=== PATIENT | male | born 1930 | race Caucasian/White ===

== ENCOUNTER 2020-10-10 11:40 | Observation (INO) | payer MEDICARE ==
--- NOTE | 2020-10-10 12:22 | Emergency Department Report ---
ED General Adult HPI - General Chief complaint: Syncope Stated complaint: SYNCOPIAL/EPISODE PUI?: No Time Seen by Provider: 10/10/20 11:58 Source: patient, family, EMS ( EMS documentation not available at time of chart dictation ), RN notes reviewed Mode of arrival: Stretcher Limitations: Altered Mental Status - History of Present Illness Initial comments: The patient was evaluated in the emergency department for symptoms described in the history of present illness. He/she was evaluated in the context of the global COVID-19 pandemic, which necessitated consideration that the patient might be at risk for infection with the virus that causes COVID-19. Institutional protocols and algorithms that pertain to the evaluation of patients at risk for COVID-19 are in a state of rapid change based on information released by regulatory bodies including the CDC and federal and state organizations. These policies and algorithms were followed during the patient's care in the emergency department. Please note that these policies, procedures and recommendations changed on a rapid basis. The patient is an 89-year-old gentleman. He is not known to myself previously. He was sent to the emergency room by [facility] cardiology. Apparently, patient was in the waiting room of the aforementioned cardiology practice, and a ppeared to have an episode of syncope/loss of consciousness/altered mental status. Patient himself is altered, poor historian, and hard of hearing. The patient indicates he is not having physical pain. The patient does not have any recollection of the event. Primary history obtained by speaking to Lea Nimisha Parada, patient's [id number]. At the moment, the patient is not physically accompanied by any biologic next of kin, and he himself is not able to describe qualitative nature of his symptoms, exacerbating factors, relieving factors, or aggravating factors. As per the patient's smmytu-[id number], patient has been confused since yesterday, less exact well time is not known, speaking nonsense, and slurred speech, and apparently, in the aforementioned cardiology office, had an episode of passing out. To the best of her recollection, no fever, no vomiting, no loss of taste or smell or urinary symptoms. In addition, the patient had initially suggested that he was given 10 medication/tablets at once, although he is not quite sure what medications, the aforementioned [id number] states that he got 5 medications and not 10, and she indicates he is where his typical prescription medications. -: days(s) Quality: other Consistency: other Improves with: other Worsens with: other Associated Symptoms: other - Related Data Allergies Allergy/AdvReac Type Severity Reaction Status Date / Time No Known Allergies Allergy Unverified 10/10/20 12:02 ED Review of Systems ROS: Stated complaint: SYNCOPIAL/EPISODE Other details as noted in HPI Comment: As per sis Constitutional: malaise. denies: fever Cardiovascular: syncope Gastrointestinal: denies: nausea, vomiting, diarrhea Genitourinary: denies: frequency Neurological: weakness, confusion ED Physical Exam - General Limitations: Altered Mental Status, Physical Limitation General appearance: in no apparent distress, obese - Head Head exam: Present: atraumatic, normocephalic - Eye Eye exam: Present: normal appearance, EOMI. Absent: nystagmus - ENT ENT exam: Present: normal exam, normal orophraynx, mucous membranes moist, normal external ear exam - Neck Neck exam: Present: normal inspection, full ROM. Absent: tenderness, meningismus - Respiratory Respiratory exam: Present: decreased breath sounds. Absent: respiratory distress, rales, rhonchi, stridor - Cardiovascular Cardiovascular Exam: Present: normal rhythm, bradycardia, normal heart sounds. Absent: irregular rhythm, systolic murmur, diastolic murmur, rubs, gallop - GI/Abdominal GI/Abdominal exam: Present: soft, distended, normal bowel sounds. Absent: tenderness, guarding, rigid, pulsatile mass - Rectal Rectal exam: Present: deferred - Extremities Exam Extremities exam: Present: normal inspection, full ROM, pedal edema (1-2+ edema in the bilateral lower extremities), other (2+ pulses noted in the bilateral upper and lower extremities. There is no palpable cord. negative Homans sign. Muscular compartments are soft. The pelvis is stable.). Absent: calf tenderness - Back Exam Back exam: Present: normal inspection. Absent: tenderness, CVA tenderness (R), CVA tenderness (L), paraspinal tenderness, vertebral tenderness - Neurological Exam Neurological exam: Present: altered (Patient is awake. Patient knows his name. He does not know the month, or the day, or the year, or the location), other (No facial droop. Tongue midline. Extraocular movements intact bilaterally. Facial sensation intact to light touch in V1, V2, V3 distribution bilaterally. 5 and a 5 strength in 4 extremities. Sensation intact to light touch in 4 extremities.) - Psychiatric Psychiatric exam: Present: normal affect, normal mood - Skin Skin exam: Present: warm, dry, intact, normal color. Absent: rash ED Course Vital Signs 10/10/20 10/10/20 10/10/20 11:54 13:00 14:00 Temperature 98.2 F Pulse Rate 57 L 56 L 62 Respiratory 14 Rate Blood Pressure 133/52 153/40 154/41 [Left] O2 Sat by Pulse 100 98 97 Oximetry - Reevaluation(s) Reevaluation #1: 10/10/20 14:53 Discussed patient's care with his son, Mr. Emmanuel Torres; [phone] patient son amenable to admission for diagnostic work-up and therapy. ED Medical Decision Making - Lab Data Result diagrams: 10/10/20 12:56 10/10/20 12:56 Vital Signs 10/10/20 11:54 Temperature 98.2 F Pulse Rate 57 L Respiratory 14 Rate Blood Pressure 133/52 [Left] O2 Sat by Pulse 100 Oximetry Lab Results 10/10/20 10/10/20 10/10/20 Range/Units 12:56 12:56 12:56 WBC 6.7 (4.5-11.0) K/mm3 RBC 4.08 (3.65-5.03) M/mm3 Hgb 12.5 (11.8-15.2) gm/dl Hct 36.2 (35.5-45.6) % MCV 89 (84-94) fl MCH 31 (28-32) pg MCHC 35 H (32-34) % RDW 14.8 (13.2-15.2) % Plt Count 162 (140-440) K/mm3 Lymph % (Auto) 9.7 L (13.4-35.0) % Bibb % (Auto) 12.2 H (0.0-7.3) % Eos % (Auto) 2.4 (0.0-4.3) % Baso % (Auto) 0.5 (0.0-1.8) % Lymph # (Auto) 0.6 L (1.2-5.4) K/mm3 Bibb # (Auto) 0.8 (0.0-0.8) K/mm3 Eos # (Auto) 0.2 (0.0-0.4) K/mm3 Baso # (Auto) 0.0 (0.0-0.1) K/mm3 Seg Neutrophils % 75.2 H (40.0-70.0) % Seg Neutrophils # 5.0 (1.8-7.7) K/mm3 PT 13.6 (12.2-14.9) Sec. INR 1.05 (0.87-1.13) Sodium 132 L (137-145) mmol/L Potassium 5.0 (3.6-5.0) mmol/L Chloride 100.0 (98-107) mmol/L Carbon Dioxide 29 (22-30) mmol/L Anion Gap 8 mmol/L BUN 16 (9-20) mg/dL Creatinine 0.9 (0.8-1.3) mg/dL Estimated GFR > 60 ml/min BUN/Creatinine Ratio 18 % Glucose 103 H (75-100) mg/dL Lactic Acid (0.7-2.0) mmol/L Calcium 8.9 (8.4-10.2) mg/dL Magnesium 2.10 (1.7-2.3) mg/dL Total Bilirubin 0.50 (0.1-1.2) mg/dL AST 35 (5-40) units/L ALT 31 (7-56) units/L Alkaline Phosphatase 95 (35-129) units/L Total Creatine Kinase 232 H (55-170) units/L Troponin T < 0.010 (0.00-0.029) ng/mL NT-Pro-B Natriuret Pep (0-900) pg/mL Total Protein 6.9 (6.3-8.2) g/dL Albumin 3.9 (3.9-5) g/dL Albumin/Globulin Ratio 1.3 % TSH (0.270-4.200) mlU/mL Salicylates (2.8-20.0) mg/dL Acetaminophen (10.0-30.0) ug/mL Plasma/Serum Alcohol (0-0.07) % 10/10/20 10/10/20 10/10/20 Range/Units 12:56 12:56 12:56 WBC (4.5-11.0) K/mm3 RBC (3.65-5.03) M/mm3 Hgb (11.8-15.2) gm/dl Hct (35.5-45.6) % MCV (84-94) fl MCH (28-32) pg MCHC (32-34) % RDW (13.2-15.2) % Plt Count (140-440) K/mm3 Lymph % (Auto) (13.4-35.0) % Bibb % (Auto) (0.0-7.3) % Eos % (Auto) (0.0-4.3) % Baso % (Auto) (0.0-1.8) % Lymph # (Auto) (1.2-5.4) K/mm3 Bibb # (Auto) (0.0-0.8) K/mm3 Eos # (Auto) (0.0-0.4) K/mm3 Baso # (Auto) (0.0-0.1) K/mm3 Seg Neutrophils % (40.0-70.0) % Seg Neutrophils # (1.8-7.7) K/mm3 PT (12.2-14.9) Sec. INR (0.87-1.13) Sodium (137-145) mmol/L Potassium (3.6-5.0) mmol/L Chloride (98-107) mmol/L Carbon Dioxide (22-30) mmol/L Anion Gap mmol/L BUN (9-20) mg/dL Creatinine (0.8-1.3) mg/dL Estimated GFR ml/min BUN/Creatinine Ratio % Glucose (75-100) mg/dL Lactic Acid 1.10 (0.7-2.0) mmol/L Calcium (8.4-10.2) mg/dL Magnesium (1.7-2.3) mg/dL Total Bilirubin (0.1-1.2) mg/dL AST (5-40) units/L ALT (7-56) units/L Alkaline Phosphatase (35-129) units/L Total Creatine Kinase (55-170) units/L Troponin T (0.00-0.029) ng/mL NT-Pro-B Natriuret Pep (0-900) pg/mL Total Protein (6.3-8.2) g/dL Albumin (3.9-5) g/dL Albumin/Globulin Ratio % TSH 1.670 (0.270-4.200) mlU/mL Salicylates < 0.3 L (2.8-20.0) mg/dL Acetaminophen (10.0-30.0) ug/mL Plasma/Serum Alcohol (0-0.07) % 10/10/20 10/10/20 10/10/20 Range/Units 12:56 12:56 13:28 WBC (4.5-11.0) K/mm3 RBC (3.65-5.03) M/mm3 Hgb (11.8-15.2) gm/dl Hct (35.5-45.6) % MCV (84-94) fl MCH (28-32) pg MCHC (32-34) % RDW (13.2-15.2) % Plt Count (140-440) K/mm3 Lymph % (Auto) (13.4-35.0) % Bibb % (Auto) (0.0-7.3) % Eos % (Auto) (0.0-4.3) % Baso % (Auto) (0.0-1.8) % Lymph # (Auto) (1.2-5.4) K/mm3 Bibb # (Auto) (0.0-0.8) K/mm3 Eos # (Auto) (0.0-0.4) K/mm3 Baso # (Auto) (0.0-0.1) K/mm3 Seg Neutrophils % (40.0-70.0) % Seg Neutrophils # (1.8-7.7) K/mm3 PT (12.2-14.9) Sec. INR (0.87-1.13) Sodium (137-145) mmol/L Potassium (3.6-5.0) mmol/L Chloride (98-107) mmol/L Carbon Dioxide (22-30) mmol/L Anion Gap mmol/L BUN (9-20) mg/dL Creatinine (0.8-1.3) mg/dL Estimated GFR ml/min BUN/Creatinine Ratio % Glucose (75-100) mg/dL Lactic Acid (0.7-2.0) mmol/L Calcium (8.4-10.2) mg/dL Magnesium (1.7-2.3) mg/dL Total Bilirubin (0.1-1.2) mg/dL AST (5-40) units/L ALT (7-56) units/L Alkaline Phosphatase (35-129) units/L Total Creatine Kinase (55-170) units/L Troponin T (0.00-0.029) ng/mL NT-Pro-B Natriuret Pep 1482 H (0-900) pg/mL Total Protein (6.3-8.2) g/dL Albumin (3.9-5) g/dL Albumin/Globulin Ratio % TSH (0.270-4.200) mlU/mL Salicylates (2.8-20.0) mg/dL Acetaminophen 5.0 L (10.0-30.0) ug/mL Plasma/Serum Alcohol < 0.01 (0-0.07) % - EKG Data -: EKG Interpreted by Me - EKG Data When compared to previous EKG there are: previous EKG unavailable 10/10/20 14:36 EKG today shows a sinus rhythm, bradycardia, left axis deviation, left anterior fascicular block, left bundle branch block. Denies chest pain, no STEMI, no prior for comparison. - Radiology Data Radiology results: report reviewed, image reviewed CHEST 1 VIEW INDICATION / CLINICAL INFORMATION: Altered Mental Status rhonchi. COMPARISON: None available. FINDINGS: SUPPORT DEVICES: None. HEART / MEDIASTINUM: Mild cardiomegaly LUNGS / PLEURA: Mild interstitial prominence No pneumothorax. ADDITIONAL FINDINGS: No significant additional findings. IMPRESSION: Interstitial markings are mildly prominent with mild cardiomegaly. This could represent early congestive failure Signer Name: Julien Vasquez MD FACR Signed: 10/10/2020 11:52 AM Workstation Name: [id number] CT head/brain wo con INDICATION / CLINICAL INFORMATION: 89 years Male; ams. TECHNIQUE: Routine CT head without contrast. All CT scans at this location are performed using CT dose reduction for ALARA by means of automated exposure control. COMPARISON: None. FINDINGS: BRAIN / INTRACRANIAL CONTENTS: There is moderate cerebral atrophy with associated prominence of the ventricular system. There is mild to moderate cerebral white matter disease which includes the ganglia capsular regions. There is no clear CT evidence of acute intracranial hemorrhage or significant mass effect. ORBITS: No significant abnormality of visualized orbits. SINUSES / MASTOIDS: There is minimal mucosal thickening within the left maxillary sinus. CRANIOCERVICAL JUNCTION: No significant abnormality. ADDITIONAL FINDINGS: None. IMPRESSION: 1. 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 Signer Name: Abel Ballesteros MD Signed: 10/10/2020 12:39 PM Workstation Name: [id number] - Medical Decision Making Differential diagnosis, including but not limited to: Orthostasis, vagal event, structural cardiac disease, toxic encephalopathy, metabolic encephalopathy, camacho bacute stroke, pneumonia, urinary tract infection Assessment and plan: 89-year-old gentleman, who was altered, last known well time is not explicitly known as per family, sometime yesterday, who is altered as per family, not speaking normally, not in his usual state of health, with an episode of syncope. The patient speaks Nepali. This provider is conversant in Nepali. Patient follows commands, and was conversant. He indicates that he is not having pain. However, he cannot provide details as to the aforementioned history. It is my opinion that the patient is not alert and oriented, that he does not have decision-making capacity. His family/collateral are insistent that he is not at his baseline. He is not a TPA candidate given last known well time is more than 4.5 hours prior to presentation. His examination is not suggestive of a large vessel occlusion. Digoxin level is pending at this time. X-ray of the chest suggest possible CHF, he has elevated proBNP, and lower extremity edema. We will give Lasix therapy, aspirin, and admit to the medical service. I will defer to the inpatient team to follow-up on urinalysis, as well as digoxin level. Critical Care Time: No Critical care attestation.: If time is entered above; I have spent that time in minutes in the direct care of this critically ill patient, excluding procedure time. ED Disposition Clinical Impression: Acute encephalopathy, Abnormal EKG Syncope Qualifiers: Encounter type: initial encounter Disposition: OP ADMIT IP TO THIS HOSP Is pt being admited?: Yes Does the pt Need Aspirin: Yes Condition: Good Instructions: Syncope (ED) Referrals: PRIMARY CARE, [Primary Care Provider] - 3-5 Days Heart Score - HEART Score History: Slightly suspicious EKG: Non-specific Age: > 65 Risk factors: 1-2 risk factors Troponin: < normal limit HEART Score: 4 - Critical Actions Critical Actions: 4-6 pts:12-16.6% risk of adverse cardiac event. Should be admitted
--- NOTE | 2020-10-10 12:56 | XRay Report ---
CHEST 1 VIEW INDICATION / CLINICAL INFORMATION: Altered Mental Status rhonchi. COMPARISON: None available. FINDINGS: SUPPORT DEVICES: None. HEART / MEDIASTINUM: Mild cardiomegaly LUNGS / PLEURA: Mild interstitial prominence No pneumothorax. ADDITIONAL FINDINGS: No significant additional findings. IMPRESSION: Interstitial markings are mildly prominent with mild cardiomegaly. This could represent early congest mark failure Signer Name: Julien Vasquez MD FACR Signed: 10/10/2020 12:52 PM Workstation Name: [id number]
--- NOTE | 2020-10-10 13:44 | Cat Scan Report ---
CT head/brain wo con INDICATION / CLINICAL INFORMATION: 89 years Male; ams. TECHNIQUE: Routine CT head without contrast. All CT scans at this location are performed using CT dos e reduction for ALARA by means of automated exposure control. COMPARISON: None. FINDINGS: BRAIN / INTRACRANIAL CONTENTS: There is moderate cerebral atrophy with associated prominence of the v entricular system. There is mild to moderate cerebral white matter disease which includes the ganglia capsular regions. There is no clear CT evidence of acute intracranial hemorrhage or significant mass effect. ORBITS: No significant abnormality of visualized orbits. SINUSES / MASTOIDS: There is minimal mucosal thickening within the left maxillary sinus. CRANIOCERVICAL JUNCTION: No significant abnormality. ADDITIONAL FINDINGS: None. IMPRESSION: 1. 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 Signer Name: Abel Ballesteros MD Signed: 10/10/2020 1:39 PM Workstation Name: [id number]
[2020-10-10 13:54] LABS: Basophils % (Auto) 0.5 % (0.0-1.8); Eosinophils # (Auto) 0.2 K/mm3 (0.0-0.4); Eosinophils % (Auto) 2.4 % (0.0-4.3); Hematocrit 36.2 % (35.5-45.6); Hemoglobin 12.5 gm/dl (11.8-15.2); Lymphocytes # (Auto) 0.6 K/mm3 (1.2-5.4); Lymphocytes % (Auto) 9.7 % (13.4-35.0); Mean Corpuscular HGB Conc 35 % (32-34); Mean Corpuscular Volume 89 fl (84-94); Monocytes # (Auto) 0.8 K/mm3 (0.0-0.8); Monocytes % (Auto) 12.2 % (0.0-7.3); Platelet Count 162 K/mm3 (140-440); Red Blood Count 4.08 M/mm3 (3.65-5.03); Red Cell Distribution Width 14.8 % (13.2-15.2)
[2020-10-10 14:04] LABS: INR 1.05 (0.87-1.13)
[2020-10-10 14:10] LABS: Alanine Aminotransferase 31 units/L (7-56); Albumin 3.9 g/dL (3.9-5); BUN/Creatinine Ratio 18; Blood Urea Nitrogen 16 mg/dL (9-20); Calcium 8.9 mg/dL (8.4-10.2); Hemolysis Index 1
[2020-10-10] MEDS ORDERED: ASPIRIN 81 MG TAB CHEW PO ONE (14:43)
[2020-10-10] MEDS ORDERED: FUROSEMIDE 20 MG/2 ML INJ IV ONE (14:43)
[2020-10-10] MEDS ORDERED: ONDANSETRON 4 MG/2 ML INJ IV PRN ×2 (17:31→17:36)
[2020-10-10] MEDS ORDERED: MORPHINE 2 MG/1 ML INJ IV PRN (17:31)
[2020-10-10] MEDS ORDERED: MAGNESIUM HYDROXIDE (MOM) ORAL LIQD UDC PO PRN (17:31)
[2020-10-10] MEDS ORDERED: ACETAMINOPHEN 325 MG TAB PO PRN (17:31)
--- NOTE | 2020-10-10 17:44 | History and Physical Report ---
History of Present Illness Date of examination: 10/10/20 Date of admission: 10/10/20 14:44 Chief complaint: Syncope Altered mental Status History of present illness: 89-year-old male [facility] room for evaluation after having an episode of syncope and changes in mental status. Patient is a poor historian and most of the history was obtained from the ER staff. According to family patient was said to have been confused over the past 24 hours and thereafter had a syncopal episode in the clinic today. Work-up in the emergency room today CT scan of the head was unremarkable. Chest x-ray was consistent with some pulmonary edema Labs showed elevated BNP. Patient is being admitted for syncope and new onset CHF. Past History Past Medical History: No medical history Past Surgical History: No surgical history Social history: no significant social history Family history: no significant family history Medications and Allergies Allergies Allergy/AdvReac Type Severity Reaction Status Date / Time No Known Allergies Allergy Unverified 10/10/20 12:02 Active Meds: Active Medications Acetaminophen (Acetaminophen 325 Mg Tab) 650 mg PO Q4H PRN PRN Reason: Pain MILD(1-3)/Fever >100.5/PHAM Enoxaparin Sodium (Enoxaparin 40 Mg/0.4 Ml Inj) 40 mg SUB-Q QDAY@2200 ALANNA; Protocol Furosemide (Furosemide 40 Mg/4 Ml Inj) 40 mg IV BID@0600,1800 ALANNA Magnesium Hydroxide (Magnesium Hydroxide (Mom) Oral Liqd Udc) 30 ml PO Q4H PRN PRN Reason: Constipation Morphine Sulfate (Morphine 2 Mg/1 Ml Inj) 2 mg IV Q4H PRN PRN Reason: Pain, Moderate (4-6) Ondansetron HCl (Ondansetron 4 Mg/2 Ml Inj) 4 mg IV Q8H PRN PRN Reason: Nausea And Vomiting Ondansetron HCl (Ondansetron 4 Mg/2 Ml Inj) 4 mg IV Q8H PRN PRN Reason: Nausea And Vomiting Sodium Chloride (Sodium Chloride 0.9% 10 Ml Flush Syringe) 10 ml IV BID ALANNA Sodium Chloride (Sodium Chloride 0.9% 10 Ml Flush Syringe) 10 ml IV PRN PRN PRN Reason: LINE FLUSH Sodium Chloride (Sodium Chloride 0.9% 10 Ml Flush Syringe) 10 ml IV BID ALANNA Sodium Chloride (Sodium Chloride 0.9% 10 Ml Flush Syringe) 10 ml IV PRN PRN PRN Reason: LINE FLUSH Review of Systems Constitutional: no fever, no chills Ears, nose, mouth and throat: no nasal congestion, no sore throat Cardiovascular: no chest pain, no palpitations Respiratory: no cough, no shortness of breath Gastrointestinal: no abdominal pain, no nausea, no vomiting, no diarrhea Genitourinary Male: no dysuria, no hematuria, no flank pain Musculoskeletal: no neck pain, no low back pain Integumentary: no rash, no pruritis Neurological: no headaches, no confusion Psychiatric: no anxiety, no depression Exam - Constitutional Vitals: Temp Pulse Resp BP Pulse Ox 98.2 F 62 14 154/41 97 10/10/20 11:54 10/10/20 14:00 10/10/20 11:54 10/10/20 14:00 10/10/20 14:00 General appearance: Present: no acute distress, well-nourished - EENT Eyes: Present: PERRL, EOM intact. Absent: scleral icterus ENT: hearing intact, clear oral mucosa, dentition normal - Neck Neck: Present: supple, normal ROM - Respiratory Respiratory effort: normal Respiratory: bilateral: rales - Cardiovascular Rhythm: regular Heart Sounds: Present: S1 & S2. Absent: gallop, systolic murmur, diastolic murmur, rub - Extremities Extremities: no ischemia, pulses intact, pulses symmetrical, No edema, normal temperature, normal color, Full ROM Peripheral Pulses: within normal limits - Abdominal General gastrointestinal: Present: soft, non-tender, distended, normal bowel sounds. Absent: mass - Integumentary Integumentary: Present: clear, warm, dry. Absent: rash - Musculoskeletal Musculoskeletal: strength equal bilaterally - Psychiatric Psychiatric: appropriate mood/affect, intact judgment & insight, memory intact, cooperative - Neurologic Neurologic: CNII-XII intact, no focal deficits, moves all extremities HEART Score - HEART Score EKG: Non-specific Age: > 65 Risk factors: 1-2 risk factors Troponin: WBC 6.7 K/mm3 (4.5-11.0) 10/10/20 12:56 RBC 4.08 M/mm3 (3.65-5.03) 10/10/20 12:56 Hgb 12.5 gm/dl (11.8-15.2) 10/10/20 12:56 Hct 36.2 % (35.5-45.6) 10/10/20 12:56 MCV 89 fl (84-94) 10/10/20 12:56 MCH 31 pg (28-32) 10/10/20 12:56 MCHC 35 % (32-34) H 10/10/20 12:56 RDW 14.8 % (13.2-15.2) 10/10/20 12:56 Plt Count 162 K/mm3 (140-440) 10/10/20 12:56 Lymph % (Auto) 9.7 % (13.4-35.0) L 10/10/20 12:56 [place] % (Auto) 12.2 % (0.0-7.3) H 10/10/20 12:56 Eos % (Auto) 2.4 % (0.0-4.3) 10/10/20 12:56 Baso % (Auto) 0.5 % (0.0-1.8) 10/10/20 12:56 Lymph # (Auto) 0.6 K/mm3 (1.2-5.4) L 10/10/20 12:56 [place] # (Auto) 0.8 K/mm3 (0.0-0.8) 10/10/20 12:56 Eos # (Auto) 0.2 K/mm3 (0.0-0.4) 10/10/20 12:56 Baso # (Auto) 0.0 K/mm3 (0.0-0.1) 10/10/20 12:56 Seg Neutrophils % 75.2 % (40.0-70.0) H 10/10/20 12:56 Seg Neutrophils # 5.0 K/mm3 (1.8-7.7) 10/10/20 12:56 PT 13.6 Sec. (12.2-14.9) 10/10/20 12:56 INR 1.05 (0.87-1.13) 10/10/20 12:56 Sodium 132 mmol/L (137-145) L 10/10/20 12:56 Potassium 5.0 mmol/L (3.6-5.0) 10/10/20 12:56 Chloride 100.0 mmol/L (98-107) 10/10/20 12:56 Carbon Dioxide 29 mmol/L (22-30) 10/10/20 12:56 Anion Gap 8 mmol/L 10/10/20 12:56 BUN 16 mg/dL (9-20) 10/10/20 12:56 Creatinine 0.9 mg/dL (0.8-1.3) 10/10/20 12:56 Estimated GFR > 60 ml/min 10/10/20 12:56 BUN/Creatinine Ratio 18 % 10/10/20 12:56 Glucose 103 mg/dL (75-100) H 10/10/20 12:56 Lactic Acid 1.10 mmol/L (0.7-2.0) 10/10/20 12:56 Calcium 8.9 mg/dL (8.4-10.2) 10/10/20 12:56 Magnesium 2.10 mg/dL (1.7-2.3) 10/10/20 12:56 Total Bilirubin 0.50 mg/dL (0.1-1.2) 10/10/20 12:56 AST 35 units/L (5-40) 10/10/20 12:56 ALT 31 units/L (7-56) 10/10/20 12:56 Alkaline Phosphatase 95 units/L (35-129) 10/10/20 12:56 Ammonia 27.0 umol/L (25-60) 10/10/20 12:56 Total Creatine Kinase 232 units/L (55-170) H 10/10/20 12:56 Troponin T < 0.010 ng/mL (0.00-0.029) 10/10/20 12:56 NT-Pro-B Natriuret Pep 1482 pg/mL (0-900) H 10/10/20 13:28 Total Protein 6.9 g/dL (6.3-8.2) 10/10/20 12:56 Albumin 3.9 g/dL (3.9-5) 10/10/20 12:56 Albumin/Globulin Ratio 1.3 % 10/10/20 12:56 TSH 1.670 mlU/mL (0.270-4.200) 10/10/20 12:56 Digoxin 0.6 ng/mL (0.9-2.0) L 10/10/20 12:56 Salicylates < 0.3 mg/dL (2.8-20.0) L 10/10/20 12:56 Acetaminophen 5.0 ug/mL (10.0-30.0) L 10/10/20 12:56 Plasma/Serum Alcohol < 0.01 % (0-0.07) 10/10/20 12:56 Troponin: < normal limit - Critical Actions Critical Actions: 4-6 pts:12-16.6% risk of adverse cardiac event. Should be admitted Results - Labs CBC & Chem 7: 10/10/20 12:56 10/10/20 12:56 Labs: Abnormal lab results 10/10/20 10/10/20 10/10/20 Range/Units 12:56 12:56 12:56 MCHC 35 H (32-34) % Lymph % (Auto) 9.7 L (13.4-35.0) % [place] % (Auto) 12.2 H (0.0-7.3) % Lymph # (Auto) 0.6 L (1.2-5.4) K/mm3 Seg Neutrophils % 75.2 H (40.0-70.0) % Sodium 132 L (137-145) mmol/L Glucose 103 H (75-100) mg/dL Total Creatine Kinase 232 H (55-170) units/L NT-Pro-B Natriuret Pep (0-900) pg/mL Digoxin 0.6 L (0.9-2.0) ng/mL Salicylates < 0.3 L (2.8-20.0) mg/dL Acetaminophen (10.0-30.0) ug/mL 10/10/20 10/10/20 Range/Units 12:56 13:28 MCHC (32-34) % Lymph % (Auto) (13.4-35.0) % [place] % (Auto) (0.0-7.3) % Lymph # (Auto) (1.2-5.4) K/mm3 Seg Neutrophils % (40.0-70.0) % Sodium (137-145) mmol/L Glucose (75-100) mg/dL Total Creatine Kinase (55-170) units/L NT-Pro-B Natriuret Pep 1482 H (0-900) pg/mL Digoxin (0.9-2.0) ng/mL Salicylates (2.8-20.0) mg/dL Acetaminophen 5.0 L (10.0-30.0) ug/mL Assessment and Plan - Patient Problems (1) CHF (congestive heart failure) Current Visit: Yes Status: Acute Plan to address problem: Patient started on diuretics. Will monitor inputs and outputs and also monitor daily weight. We will schedule patient for echocardiogram. We will place consult to cardiology for evaluation. (2) Syncope Current Visit: Yes Status: Acute Qualifiers: Encounter type: initial encounter Plan to address problem: Etiology is unclear. CT scan of the head has been negative. We will request echocardiogram and carotid Doppler. (3) DVT prophylaxis Current Visit: Yes Status: Acute Plan to address problem: Patient placed on subcutaneous Lovenox. (4) Full code status Current Visit: Yes Status: Acute Plan to address problem: Patient is a full code.
[2020-10-10] MEDS: FUROSEMIDE 40 MG/4 ML INJ IV SCH (20:30)
[2020-10-10] MEDS ORDERED: ENOXAPARIN 40 MG/0.4 ML INJ SUB-Q SCH (22:00)
[2020-10-10] MEDS ORDERED: ZOLPIDEM 5 MG TAB PO ONE (23:36)
[2020-10-11 01:19] LABS: Bilirubin,Urine NEG (Negative); Blood,Urine NEG (Negative); Color,Urine Straw (Yellow); Mucus,Urine FEW /HPF; Protein,Urine <15 mg/dL mg/dL (Negative); Urobilinogen,Urine < 2.0 mg/dL (<2.0); WBC,Urine < 1.0 /HPF (0.0-6.0)
[2020-10-11] MEDS: hydrALAZINE 20 MG/1 ML INJ IV PRN ×2 (01:42→09:24)
[2020-10-11] MEDS: FUROSEMIDE 40 MG/4 ML INJ IV SCH (05:29)
[2020-10-11 06:32] LABS: Blood Urea Nitrogen 14 mg/dL (9-20); Hemolysis Index 9
[2020-10-11 06:33] LABS: Basophils % (Auto) 0.6 % (0.0-1.8); Eosinophils # (Auto) 0.2 K/mm3 (0.0-0.4); Eosinophils % (Auto) 4.7 % (0.0-4.3); Hematocrit 38.2 % (35.5-45.6); Hemoglobin 13.1 gm/dl (11.8-15.2); Lymphocytes # (Auto) 0.7 K/mm3 (1.2-5.4); Lymphocytes % (Auto) 14.4 % (13.4-35.0); Mean Corpuscular HGB Conc 34 % (32-34); Mean Corpuscular Volume 89 fl (84-94); Monocytes # (Auto) 0.6 K/mm3 (0.0-0.8); Monocytes % (Auto) 11.9 % (0.0-7.3); Platelet Count 154 K/mm3 (140-440); Red Blood Count 4.28 M/mm3 (3.65-5.03); Red Cell Distribution Width 14.9 % (13.2-15.2)
[2020-10-11 06:35] LABS: BUN/Creatinine Ratio 20
[2020-10-11 06:38] LABS: INR 1.03 (0.87-1.13)
--- NOTE | 2020-10-11 12:00 | Consultation ---
History of Present Illness Consult date: 10/11/20 Consult reason: congestive heart failure History of present illness: This is a 89-year old Kyrgyz speaking male with a long standing history of dilated cardiomyopathy, and hypertension. 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 While in the waiting area patient was noted with an transient episode of unresponsive. EMS was called and he was brought in for evaluation. Head CT scan showed no acute intracranial abnormality. A 12 lead ECG is sinus bradycardia with a chronic LBBB. Today, the patient is alert and appears well. Patient denies unusual shortness of breath, denies chest pain and denies dizziness. There is no lower extremity edema. Chest x-ray shows no evidence of interstitial edema. There are no arrhythmias seen on telemetry. A cardiac consultation has been requested for CHF. Past History Past Medical History: heart failure, hypertension, hyperlipidemia Past Surgical History: No surgical history Social history: no significant social history Family history: no significant family history Medications and Allergies Allergies Allergy/AdvReac Type Severity Reaction Status Date / Time No Known Allergies Allergy Unverified 10/10/20 12:02 Home Medications Medication Instructions Recorded Confirmed Last Taken Type Digoxin 125 mcg PO Q48H 10/10/20 10/11/20 Unknown History Rosuvastatin Calcium [Crestor] 20 mg PO HS 10/10/20 10/11/20 Unknown History cloNIDine [Catapres] 0.2 mg PO BID 10/10/20 10/11/20 Unknown History Labetalol HCl [Labetalol 300mg TAB] 300 mg PO BID 10/11/20 10/11/20 Unknown Hi story Active Meds: Active Medications Acetaminophen (Acetaminophen 325 Mg Tab) 650 mg PO Q4H PRN PRN Reason: Pain MILD(1-3)/Fever >100.5/PHAM Enoxaparin Sodium (Enoxaparin 40 Mg/0.4 Ml Inj) 40 mg SUB-Q QDAY@2200 ALANNA; Protocol Last Admin: 10/10/20 23:47 Dose: 40 mg Documented by: Furosemide (Furosemide 40 Mg/4 Ml Inj) 40 mg IV BID@0600,1800 ALANNA Last Admin: 10/11/20 05:29 Dose: 40 mg Documented by: Hydralazine HCl (Hydralazine 20 Mg/1 Ml Inj) 10 mg IV Q6H PRN PRN Reason: Hypertension Last Admin: 10/11/20 09:24 Dose: 10 mg Documented by: Magnesium Hydroxide (Magnesium Hydroxide (Mom) Oral Liqd Udc) 30 ml PO Q4H PRN PRN Reason: Constipation Morphine Sulfate (Morphine 2 Mg/1 Ml Inj) 2 mg IV Q4H PRN PRN Reason: Pain, Moderate (4-6) Ondansetron HCl (Ondansetron 4 Mg/2 Ml Inj) 4 mg IV Q8H PRN PRN Reason: Nausea And Vomiting Sodium Chloride (Sodium Chloride 0.9% 10 Ml Flush Syringe) 10 ml IV BID [facility] Last Admin: 10/11/20 09:25 Dose: 10 ml Documented by: Sodium Chloride (Sodium Chloride 0.9% 10 Ml Flush Syringe) 10 ml IV PRN PRN PRN Reason: LINE FLUSH Sodium Chloride (Sodium Chloride 0.9% 10 Ml Flush Syringe) 10 ml IV BID [facility] Last Admin: 10/11/20 09:25 Dose: Not Given Documented by: Sodium Chloride (Sodium Chloride 0.9% 10 Ml Flush Syringe) 10 ml IV PRN PRN PRN Reason: LINE FLUSH Review of Systems Cardiovascular: no chest pain, no palpitations, no rapid/irregular heart beat, no edema, no lightheadedness, no shortness of breath Physical Examination Vital Signs Temp Pulse Resp BP Pulse Ox 98.2 F 57 L 14 133/52 100 10/10/20 11:54 10/10/20 11:54 10/10/20 11:54 10/10/20 11:54 10/10/20 11:54 General appearance: no acute distress HEENT: Positive: PERRL Neck: Positive: trachea midline Cardiac: Positive: Reg Rate and Rhythm Lungs: Positive: Normal Breath Sounds Neuro: Positive: Grossly Intact Extremities: Absent: edema Results 10/11/20 05:52 10/11/20 05:52 Cardiac Enzymes 10/10/20 Range/Units 12:56 AST 35 (5-40) units/L Coagulation 10/10/20 10/11/20 Range/Units 12:56 05:52 PT 13.6 13.4 (12.2-14.9) Sec. INR 1.05 1.03 (0.87-1.13) CBC 10/10/20 10/11/20 Range/Units 12:56 05:52 WBC 6.7 5.1 (4.5-11.0) K/mm3 RBC 4.08 4.28 (3.65-5.03) M/mm3 Hgb 12.5 13.1 (11.8-15.2) gm/dl Hct 36.2 38.2 (35.5-45.6) % Plt Count 162 154 (140-440) K/mm3 Lymph # (Auto) 0.6 L 0.7 L (1.2-5.4) K/mm3 [place] # (Auto) 0.8 0.6 (0.0-0.8) K/mm3 Eos # (Auto) 0.2 0.2 (0.0-0.4) K/mm3 Baso # (Auto) 0.0 0.0 (0.0-0.1) K/mm3 Comprehensive Metabolic Panel 10/10/20 10/11/20 Range/Units 12:56 05:52 Sodium 132 L 135 L (137-145) mmol/L Potassium 5.0 3.6 D (3.6-5.0) mmol/L Chloride 100.0 98.5 (98-107) mmol/L Carbon Dioxide 29 28 (22-30) mmol/L BUN 16 14 (9-20) mg/dL Creatinine 0.9 0.7 L (0.8-1.3) mg/dL Glucose 103 H 111 H (75-100) mg/dL Calcium 8.9 9.0 (8.4-10.2) mg/dL AST 35 (5-40) units/L ALT 31 (7-56) units/L Alkaline Phosphatase 95 (35-129) units/L Total Protein 6.9 (6.3-8.2) g/dL Albumin 3.9 (3.9-5) g/dL Assessment and Plan Altered mental status -resolved Head CT scan: no acute abnormalities. Hx of dilated cardiomyopathy LVEF 15-20% by echo this presentation Hypertension LBBB, chronic Continue medical therapy for dilated cardiomyopathy. As an outpatient will arrange for a 2 week event monitor.
--- NOTE | 2020-10-11 14:30 | Vascular Lab Report ---
BILATERAL CAROTID DOPPLER HISTORY: Syncope. FINDINGS: Duplex Doppler evaluation of the carotid system was performed with spectral waveform analys is. Antegrade vertebral flow is seen bilaterally. Peak systolic velocity at the right internal carotid artery is 156 cm/s. End-diastolic velocity is 33 cm/s. Systolic velocity ratio is 1.4. Peak systolic velocity at the left internal carotid artery is 176 cm/s. End-diastolic velocity is 38 cm/s. Systolic velocity ratio is 1.6. Grayscale imaging demonstrates scattered plaque without flow limiting stenosis. IMPRESSION: Velocity elevation without elevation in systolic velocity ratio or end-diastolic velocity . 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 Signer Name: Jay Fontaine MD Signed: 10/11/2020 2:26 PM Workstation Name: [id number]
[2020-10-11] MEDS ORDERED: amLODIPine 5 MG TAB PO SCH (15:00)
--- NOTE | 2020-10-11 15:50 | Discharge Summary ---
Providers - Providers Date of Admission: 10/10/20 14:44 Date of discharge: 10/11/20 Attending physician: NEEL BEACH 10/10/20 17:31 Consult to Physician [CONS] Routine Comment: Consulting Provider: SHIRLEY DEGROOT Physician Instructions: Reason For Exam: CHF- New onset 10/11/20 09:51 Occupational Therapy Evaluate and Treat [CONS] Routine Comment: Reason For Exam: debility Physical Therapy Evaluation and Treat [CONS] Routine Comment: Reason For Exam: debility Primary care physician: [facility] PROVIDER Hospitalization Condition: Good Pertinent studies: Carotid Doppler no significant stenosis. CT scan of head mild cortical atrophy echocardiogram ejection fraction 15 to 20%. Hospital course: This is a 89-year old Tristanian speaking male with a long standing history of dilated cardiomyopathy, and hypertension. 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 While in the waiting area patient was noted with an transient episode of unresponsive. EMS was called and he was brought in for evaluation. Head CT scan showed no acute intracranial abnormality. A 12 lead ECG is sinus bradycardia with a chronic LBBB. Today, the patient is alert and appears well. Patient denies unusual shortness of breath, denies chest pain and denies dizziness. There is no lower extremity edema. Chest x-ray shows no evidence of interstitial edema. There are no arrhythmias seen on telemetry. A cardiac consultation has been requested for CHF. Patient potential mild CHF not hypoxic in usual state of health. Patient explained both Telugu and Tristanian about heart failure and volume overload. Patient is aware to follow-up with his store administrator in 2 weeks. All questions and concerns answered to patient satisfaction. Disposition: - TO HOME OR SELFCARE Core Measure Documentation - Palliative Care Palliative Care/ Comfort Measures: Not Applicable - Core Measures Any of the following diagnoses?: heart failure, none - Heart Failure Discharge Requirements NINOSKA/ARB for LVSD if EF <40%: Yes Beta sherrie at discharge: Yes Exam - Constitutional Vitals: Temp Pulse Resp BP Pulse Ox 97.1 F L 66 17 175/60 98 10/11/20 09:21 10/11/20 09:24 10/11/20 11:13 10/11/20 09:24 10/11/20 11:13 General appearance: Present: no acute distress, well-nourished - EENT Eyes: Present: PERRL ENT: hearing intact, clear oral mucosa - Neck Neck: Present: supple, normal ROM - Respiratory Respiratory effort: normal Respiratory: bilateral: CTA - Cardiovascular Heart Sounds: Present: S1 & S2. Absent: rub, click - Extremities Extremities: pulses symmetrical, No edema Peripheral Pulses: within normal limits - Abdominal General gastrointestinal: Present: soft, non-tender, non-distended, normal bowel sounds Male genitourinary: Present: normal - Integumentary Integumentary: Present: clear, warm, dry - Musculoskeletal Musculoskeletal: gait normal, strength equal bilaterally - Psychiatric Psychiatric: appropriate mood/affect, intact judgment & insight - Neurologic Neurologic: CNII-XII intact, moves all extremities Plan Activity: up only with assistance Weight Bearing Status: Full Weight Bearing Diet: low cholesterol Special Instructions: restrict fluid intake to (1.5) Follow up with: PRIMARY CARE, [Primary Care Provider] - 3-5 Days Prescriptions: carvediloL [Coreg] 12.5 mg PO BID #60 tablet Furosemide [Lasix TAB] 20 mg PO 0600,1800 #60 tablet lisinopriL [Zestril TAB] 5 mg PO QDAY #30 tablet
[2020-10-11] MEDS ORDERED: LISINOPRIL 5 MG TAB PO SCH (16:00)
[2020-10-11] MEDS ORDERED: carvediloL 12.5 MG TAB PO SCH (16:00)
[2020-10-11 16:11] VITALS: BP 145/74
[2020-10-11] MEDS ORDERED: ISOSORB DINIT/HYDRALAZINE 20-37.5MG TAB PO SCH (18:00)
[2020-10-11] MEDS ORDERED: LISINOPRIL 10 MG TAB PO SCH (18:00)
[2020-10-11] MEDS ORDERED: ASPIRIN EC 81 MG TAB PO SCH (18:00)
[2020-10-11] MEDS ORDERED: FUROSEMIDE 20 MG TAB PO SCH (18:00)
[2020-10-11] MEDS ORDERED: SPIRONOLACTONE 25 MG TAB PO SCH (18:00)
[2020-10-11] MEDS ORDERED: FUROSEMIDE 40 MG TAB PO SCH (18:00)
[2020-10-11] MEDS ORDERED: carvediloL 3.125 MG TAB PO SCH (22:00)
== END 2020-10-11 18:31 | disposition home or self-care (01) ==
LOC: ED 11:40 → 4A 14:44
PROVIDERS: ADMIT Internal Medicine Geriatric Medicine; ATTEND Internal Medicine
DX: G93.40 Encephalopathy, unspecified (principal); I11.0 Hypertensive heart disease with heart failure; I50.9 Heart failure, unspecified; R55 Syncope and collapse; R94.31 Abnormal electrocardiogram [ECG] [EKG]; R41.82 Altered mental status, unspecified
CPT/HCPCS: 36415; 70450; 71045; 80048; 80053; 80162; 81001; 82140; 82550; 83735; 83880; 84443; 84484; 85025; 85610; 87040; 87086; 93306; 93880; 96372; 96374; 96375; 96376; 99285; G0378; J0360; J1650; J1940; 80320; G0480